=== PATIENT | female | born 1995 | race Caucasian/White ===

== ENCOUNTER 2017-02-02 13:58 | Emergency (ER) | payer MEDICAID ==
[2017-02-02 14:54] LABS: APPEARANCE CLOUDY (CLEAR); BILIRUBIN NEGATIVE (NEGATIVE); COLOR DK YELLOW (YELLOW); GLUCOSE NEGATIVE (NEGATIVE); KETONE MODERATE mg/dL (NEGATIVE); LEUKOCYTE ESTERASE TRACE (NEGATIVE); NITRITE NEGATIVE (NEGATIVE); PROTEIN 1+ mg/dL (NEGATIVE); RED CELLS - URINE OCC /hpf (0-5); SPECIFIC GRAVITY 1.015 (1.005-1.020)
[2017-02-02 14:55] LABS: BACTERIA MODERATE /hpf (NONE SEEN); MUCUS >1+ /lpf (NONE SEEN)
== END 2017-02-02 15:14 | disposition home or self-care (01) ==
LOC: D.ER 13:58
PROVIDERS: Family Medicine
DX: G40.909 Epilepsy, unspecified, not intractable, without status epilepticus (principal)

== ENCOUNTER 2017-08-17 21:21 | Emergency (ER) | payer MEDICAID | END 2017-08-17 23:05 | disposition home or self-care (01) | LOC: D.ER 21:21 | DX: G40.909 Epilepsy, unspecified, not intractable, without status epilepticus (principal) ==

== ENCOUNTER 2018-05-31 22:31 | Emergency (ER) | payer MEDICAID ==
[~2018-05-31] VITALS: Ht 170.2 cm; Wt 86.4 kg
[2018-05-31 22:32] VITALS: Ht 170.2 cm; Wt 86.4 kg
[2018-05-31] MEDS ORDERED: IMITREX100 MG PO (22:34)
[2018-05-31] MEDS ORDERED: LAMICTAL100 MG PO (22:35)
[2018-05-31] MEDS ORDERED: LAMICTAL25 MG PO (22:35)
[2018-05-31 23:20] VITALS: BP 128/77
== END 2018-05-31 23:20 | disposition home or self-care (01) ==
LOC: D.ER 22:31
DX: G40.909 Epilepsy, unspecified, not intractable, without status epilepticus (principal)